=== PATIENT | male | born 1955 | race American Indian/Alaskan Native ===

== ENCOUNTER 2020-10-10 06:47 | Day surgery (SDC) | payer OTHER ==
[~2020-10-10 06:47] MED LIST: WATER FOR IRRIG STERILE 1,500 ML BOTTLE IR ONE; WATER FOR IRRIG STERILE 2000 ML IR ONE
[2020-10-10] MEDS ORDERED: HYDROmorphone 1 MG/1 ML INJ IV PRN (08:18)
[2020-10-10] MEDS ORDERED: PANTOPRAZOLE 40 MG TAB PO NR (08:18)
--- NOTE | 2020-10-10 08:19 | Anesthesia Day of Surgery ---
Anesthesia Day of Surgery - Day of Surgery Patient Examined: Yes Patient H&P Reviewed: Yes Patient is NPO: Yes
--- NOTE | 2020-10-10 08:20 | Anesthesia Consultation ---
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
[2020-10-10] MEDS ORDERED: LACTATED RINGERS 1,000 ML IV SCH (08:30)
[2020-10-10] MEDS ORDERED: ONDANSETRON 4 MG/2 ML INJ IV PRN (08:30)
[2020-10-10] MEDS ORDERED: MIDAZOLAM 2 MG/2 ML INJ IV NR (09:00)
[2020-10-10] MEDS ORDERED: ceFAZolin/STERILE WATER 2 GM/20 ML SYRINGE IV NR (09:33)
[2020-10-10] MEDS ORDERED: HYDROmorphone 1 MG/1 ML INJ ONE (09:49)
[2020-10-10] MEDS ORDERED: propofoL 200 MG/20 ML VIAL IV ONE (09:49)
[2020-10-10] MEDS ORDERED: LIDOCAINE MPF (2%) 20 MG/1 ML VIAL 5 ML ONE (09:49)
[2020-10-10] MEDS ORDERED: WATER FOR IRRIG STERILE 2000 ML IR ONE ×2 (10:28)
[2020-10-10] MEDS ORDERED: WATER FOR IRRIG STERILE 1,500 ML BOTTLE IR ONE (10:28)
[2020-10-10] MEDS ORDERED: KETOROLAC 30 MG/1 ML INJ ONE (10:54)
[2020-10-10] MEDS ORDERED: ONDANSETRON 4 MG/2 ML INJ ONE ×2 (10:54→13:32)
--- NOTE | 2020-10-10 11:01 | Short Stay Summary ---
Short Stay Documentation Date of service: 10/10/20 - History H&P: obtained from office - Allergies and Medications Current Medications: Allergies No Known Allergies Allergy (Unverified 10/07/20 09:23) Home Medications Medication Instructions Recorded Confirmed Last Taken Type Pantoprazole [Protonix] 40 mg PO QDAY 10/07/20 10/07/20 10/09/20 History Zolpidem Tartrate 10 mg PO HS 10/07/20 10/07/20 10/09/20 History Active Medications Cefazolin Sodium (Cefazolin/Sterile Water 2 Gm/20 Ml Syringe) 2 gm IV PREOP NR Stop: 10/10/20 23:59 Hydromorphone HCl (Hydromorphone 1 Mg/1 Ml Inj) 0.5 mg IV Q10MIN PRN PRN Reason: Pain , Severe (7-10) Stop: 10/10/20 23:00 Hydromorphone HCl (Hydromorphone 1 Mg/1 Ml Inj) 0.25 mg IV Q10MIN PRN PRN Reason: Pain, Moderate (4-6) Stop: 10/10/20 23:00 Lactated Ringer's (Lactated Ringers) 1,000 mls @ 125 mls/hr IV DIRECT KATINA Last Admin: 10/10/20 09:10 Dose: 125 mls/hr Documented by: Midazolam HCl (Midazolam 2 Mg/2 Ml Inj) 2 mg IV PREOP NR Stop: 10/10/20 23:59 Last Admin: 10/10/20 09:11 Dose: 2 mg Documented by: Ondansetron HCl (Ondansetron 4 Mg/2 Ml Inj) 4 mg IV ONCE PRN PRN Reason: Nausea And Vomiting Stop: 10/10/20 13:00 - Brief post op/procedure progress note Date of procedure: 10/10/20 Pre-op diagnosis: bladder tumor-rt Post-op diagnosis: other (urethral stricture) - Hospital course Hospital course: ruel lo,post op info on chart - Disposition Condition at discharge: Stable Disposition: DC-01 TO HOME OR SELFCARE Short Stay Discharge Plan Follow up with: [facility] [Primary Care Provider] - 7 Days
[2020-10-10] MEDS: HYDROmorphone 1 MG/1 ML INJ IV PRN ×4 (11:20→11:57)
[2020-10-10 12:43] VITALS: BP 154/90
--- NOTE | 2020-10-10 13:06 | Operative Report ---
DATE OF SURGERY: 10/10/2020 PREOPERATIVE DIAGNOSIS: Right-sided bladder tumor, 2 cm. POSTOPERATIVE DIAGNOSIS: Right-sided bladder tumor, 2 cm. SECONDARY DIAGNOSIS: Urethral stricture. PROCEDURE PERFORMED: Cystoscopy, bilateral retrograde pyelograms, direct vision internal urethrotomy, transurethral resection of bladder tumor, 2 cm. SURGEON: Luis M Patricio MD. ANESTHESIA: General. ESTIMATED BLOOD LOSS: Minimal. FLUIDS: Crystalloid. COMPLICATIONS: No complications. INDICATIONS: This patient is a 65-year-old gentleman seen for hematuria. He had a CT suggested a 2 cm mass. Cystoscopy confirmed bladder tumor. Risks, benefits, and complications were explained. The patient agreed to proceed with surgical intervention. DESCRIPTION OF PROCEDURE: The patient was taken to the operative suite, placed in the supine position. After adequate general anesthesia, placed in the dorsal lithotomy position, prepped and draped in a sterile fashion. Pancystourethroscopy was performed with 22-[place] Storz cystoscope. Obvious bulbar stricture. A 0.035 Glidewire was placed. Cold knife was used to make a cut at the 12 o'clock position. The scope was able to be advanced. Prostate was nonobstructing the bladder. No stones were noted. Both ureteral orifices in normal position. Calcified tumor, right lateral wall could be appreciated. Bilateral retrograde pyelograms were obtained with an 8-[place] Bernardo catheter and 8 mL of contrast. No filling defects or obstruction. Next, using with a 24-[place] resectoscope and loop with cutting and coag on 160 and 60, transurethral resection of the bladder tumor was performed. As I got down to the base, started to have an obturator reflex. I dropped the cut down to 140. I was able to resect a little more and developed reflex again and therefore, I cauterized the rest of the base. Chips were evacuated out. Cystogram suggested mild extraperitoneal. I left a 20-[place] catheter draining. Rectal exam was benign. He was extubated and taken to recovery room and go home on Bactrim and Delmita. TID: [id number] RECEIPT: [id number] NIRAJ/CARLOS
--- NOTE | 2020-10-10 14:50 | Fluoroscopy Report ---
FLUOROSCOPY RETROGRADE UROGRAPHY FLUOROSCOPY CYSTOGRAM STATIC-OR HISTORY: Bladder tumor, urethral stricture FINDINGS: Fluoroscopy was provided by radiology during retrograde urography by the urologist. There i s normal filling of both renal collecting systems. No filling defect or abnormal dilatation is identi fied. There is good drainage of both collecting systems on the final images. A single image of the bladder is presented containing contrast agent. Bladder fulguration was perform ed per the operative notes. IMPRESSION: Unremarkable bilateral retrograde pyelograms. Bladder fulguration was performed. Fluoroscopy time: 0.8 minutes Fluoroscopic images: 6 Signer Name: Jacob Peralta Jr, MD Signed: 10/10/2020 2:45 PM Workstation Name: [id number]
--- NOTE | 2020-10-10 19:49 | Post Anesthesia Evaluation ---
- Post Anesthesia Evaluation Patient Participated: Yes Airway Patent: Yes Stable Respiratory Function: Yes Nausea/Vomiting: No Temp > 96.8F: Yes Pain Manageable: Yes Adequeate Hydration: Yes Anesthesia Complications: No Block Receding Appropriately: Not Applicable Patient on Ventilator: No
== END 2020-10-10 14:05 | disposition home or self-care (01) ==
LOC: OR 06:47
PROVIDERS: ATTEND Urology
DX: C67.2 Malignant neoplasm of lateral wall of bladder (principal); N35.812 Other bulbous urethral stricture, male; G43.909 Migraine, unspecified, not intractable, without status migrainosus; K21.9 Gastro-esophageal reflux disease without esophagitis; M19.90 Unspecified osteoarthritis, unspecified site; D64.9 Anemia, unspecified; Z98.890 Other specified postprocedural states; Z90.49 Acquired absence of other specified parts of digestive tract; Z87.891 Personal history of nicotine dependence; Z79.899 Other long term (current) drug therapy; Z87.442 Personal history of urinary calculi
CPT/HCPCS: 52234; 52276; 74420; 74430; 88307; A4217; C1758; J0690; J1170; J1885; J2250; J2405; J2704; J7120; Q9967

== ENCOUNTER 2021-09-04 06:43 | Day surgery (SDC) | payer OTHER ==
[~2021-09-04 06:43] MED LIST changes: +LACTATED RINGERS 1,000 ML IV SCH; +MIDAZOLAM 2 MG/2 ML INJ IV NR; -WATER FOR IRRIG STERILE 1,500 ML BOTTLE IR ONE; -WATER FOR IRRIG STERILE 2000 ML IR ONE
--- NOTE | 2021-09-04 07:35 | Anesthesia Consultation ---
Anesthesia Consult and Med Hx Date of service: 09/04/21 - Airway Anesthetic Teeth Evaluation: Good (multiple missing teeth, denies loose teeth), Dentures (upper) ROM Head & Neck: Adequate Mental/Hyoid Distance: Adequate Mallampati Class: Class II Intubation Access Assessment: Probably Good - Pre-Operative Health Status ASA Pre-Surgery Classification: ASA3 Proposed Anesthetic Plan: General - Pulmonary Hx Smoking: Yes (quit 30yrs ago) Hx Respiratory Symptoms: No - Cardiovascular System Hx Hypertension: No Hx Heart Attack/AMI: No - Central Nervous System CVA: No Hx Back Pain: Yes - Gastrointestinal Hx Gastroesophageal Reflux Disease: Yes - Endocrine Hx Renal Disease: No Hx Liver Disease: No Hx Insulin Dependent Diabetes: No Hx Non-Insulin Dependent Diabetes: No Hx Thyroid Disease: No - Other Systems Hx Cancer: Yes (bladder ca) - Additional Comments Anesthesia Medical History Comments: Hx post-discharge N/V.
[2021-09-04] MEDS ORDERED: ONDANSETRON 4 MG/2 ML INJ IV PRN (07:36)
[2021-09-04] MEDS ORDERED: HYDROcodone/ACETAMINOPHEN 5-325 MG TAB PO PRN (07:36)
--- NOTE | 2021-09-04 07:36 | Anesthesia Day of Surgery ---
Anesthesia Day of Surgery - Day of Surgery Patient Examined: Yes Patient H&P Reviewed: Yes Patient is NPO: Yes
[2021-09-04] MEDS ORDERED: ceFAZolin/STERILE WATER 2 GM/20 ML SYRINGE IV NR (08:00)
[2021-09-04] MEDS ORDERED: SCOPOLAMINE TRANSDERMAL PATCH 72 HR TD NR (08:00)
[2021-09-04] MEDS ORDERED: fentaNYL 100 MCG/2 ML INJ ONE (09:09)
[2021-09-04] MEDS ORDERED: LIDOCAINE MPF (2%) 20 MG/1 ML VIAL 5 ML ONE (09:09)
[2021-09-04] MEDS ORDERED: ONDANSETRON 4 MG/2 ML INJ ONE (09:09)
[2021-09-04] MEDS ORDERED: propofoL 200 MG/20 ML VIAL IV ONE (09:09)
[2021-09-04] MEDS ORDERED: WATER FOR IRRIG STERILE 2000 ML IR ONE (09:17)
--- NOTE | 2021-09-04 10:09 | Short Stay Summary ---
Short Stay Documentation Date of service: 09/04/21 - History H&P: obtained from office - Allergies and Medications Current Medications: Allergies No Known Allergies Allergy (Verified 08/31/21 11:45) Home Medications Medication Instructions Recorded Confirmed Last Taken Type Pantoprazole [Protonix] 40 mg PO QDAY 10/07/20 08/31/21 10/09/20 History Zolpidem Tartrate 10 mg PO HS 10/07/20 08/31/21 10/09/20 History HYDROcodone/APAP 5-325 [[place] 1 each PO Q6HR PRN 08/31/21 08/31/21 Unknown History 5/325] Active Medications Hydrocodone Bitart/Acetaminophen (Hydrocodone/Acetaminophen 5-325 Mg Tab) 2 each PO ONCE PRN PRN Reason: Pain, Moderate (4-6) Stop: 09/04/21 20:00 Cefazolin Sodium (Cefazolin/Sterile Water 2 Gm/20 Ml Syringe) 2 gm IV PREOP NR Stop: 09/04/21 20:00 Fentanyl (Fentanyl 100 Mcg/2 Ml Inj) 50 mcg IV Q5MIN PRN PRN Reason: Pain , Severe (7-10) Stop: 09/04/21 20:00 Lactated Ringer's (Lactated Ringers) 1,000 mls @ 100 mls/hr IV DIRECT KATINA Stop: 09/04/21 23:59 Last Admin: 09/04/21 08:54 Dose: 100 mls/hr Midazolam HCl (Midazolam 2 Mg/2 Ml Inj) 2 mg IV PREOP NR Stop: 09/04/21 23:59 Last Admin: 09/04/21 08:54 Dose: 2 mg Ondansetron HCl (Ondansetron 4 Mg/2 Ml Inj) 4 mg IV ONCE PRN PRN Reason: Nausea And Vomiting Stop: 09/04/21 12:00 Scopolamine (Scopolamine Transdermal Patch 72 Hr) 1 each TD PREOP NR Stop: 09/04/21 20:00 Last Admin: 09/04/21 08:54 Dose: 1 each - Brief post op/procedure progress note Date of procedure: 09/04/21 Pre-op diagnosis: hematuria Post-op diagnosis: same (recurrent bladder tumor) Procedure: cysto, rpg, TURBT---2CM Anesthesia: GETA Surgeon: RENNY K FREDY Pathology: list Specimen disposition: to lab Condition: stable - Hospital course Hospital course: ULTRAM & MACROBID - Disposition Condition at discharge: Stable Disposition: 01 HOME / SELF CARE / HOMELESS Short Stay Discharge Plan Follow up with: [facility] [Primary Care Provider] - 7 Days
[2021-09-04] MEDS ORDERED: MANNITOL/SORBITOL SOLUTION 3,000 ML IRRIG.SOLN IR ONE (10:10)
[2021-09-04] MEDS: fentaNYL 100 MCG/2 ML INJ IV PRN ×2 (11:55→12:50)
[2021-09-04] MEDS ORDERED: WATER FOR IRRIG STERILE 1,000 ML BOTTLE ONE ×2 (11:56→12:57)
[2021-09-04 13:42] LABS: Hematocrit 44.9 % (35.5-45.6); Hemoglobin 14.7 gm/dl (11.8-15.2)
--- NOTE | 2021-09-04 14:44 | Post Anesthesia Evaluation ---
- Post Anesthesia Evaluation Patient Participated: Yes Airway Patent: Yes Stable Respiratory Function: Yes Nausea/Vomiting: No Temp > 96.8F: Yes Pain Manageable: Yes Adequeate Hydration: Yes Anesthesia Complications: No
[2021-09-04 16:46] VITALS: BP 148/94
--- NOTE | 2021-09-04 22:37 | Operative Report ---
DATE OF SURGERY: 09/04/2021 PREOPERATIVE DIAGNOSIS: Gross hematuria. POSTOPERATIVE DIAGNOSES: Gross hematuria. Recurrent bladder tumor. PROCEDURES: Cystoscopy, bilateral retrograde pyelograms, transurethral resection of moderate sized bladder tumor, 2 cm. SURGEON: Luis M Patricio MD ANESTHESIA: General. ESTIMATED BLOOD LOSS: Minimal. FLUIDS: Crystalloid. COMPLICATIONS: No complications. INDICATIONS: This patient is a 66-year-old gentleman known to our service with a history of bladder tumor in 10/2020. He underwent resection and mitomycin C afterwards. He no-showed for his followup cystoscopy due to insurance coverage issues. He presents now for reevaluation. He had an episode of gross hematuria. DESCRIPTION OF PROCEDURE: The patient was taken to the operative suite, placed in a supine position. After adequate general anesthesia, he was prepped and draped in a sterile fashion. He was placed in the dorsal lithotomy position. Pancystourethroscopy was performed with a 22-[place] Storz cystoscope, no urethral abnormalities. Prostate minimally obstructing. Could see another bladder neck tumor ____ from the 12 o'clock to 8 o'clock position, also noted to have in the bladder some small carpet-like tumor in the trigone. No other tumors could be appreciated. Posterior diverticulum. No tumor could be appreciated in there. Bilateral retrograde pyelograms were obtained with an 8-[place] catheter and 8 mL of contrast. No filling defects or obstruction. He did have some J hooking. Next, using a 24-[place] resectoscope and loop with cutting and coag on 120 and 60, transurethral resection of the bladder tumor was performed. Appeared to have gotten all the tumor. However, he had some obturator reflex and therefore the base of the tumor was primarily cauterized to remove it. Any high current cause a significant obturator reflex. Cauterization of the tumor in the trigone was also performed. Chips were evacuated out with the [employer] evacuator. The patient tolerated the procedure well and was extubated and taken to recovery room. Rectal exam was benign. He will go home on UpTap and Calm. TID: [id number] RECEIPT: [id number] [facility]/FRANK/LARRY
== END 2021-09-04 15:45 | disposition home or self-care (01) ==
LOC: OR 06:43
PROVIDERS: ATTEND Urology
DX: R31.0 Gross hematuria (principal); C67.0 Malignant neoplasm of trigone of bladder; N13.9 Obstructive and reflux uropathy, unspecified; G43.909 Migraine, unspecified, not intractable, without status migrainosus; K21.9 Gastro-esophageal reflux disease without esophagitis; M19.90 Unspecified osteoarthritis, unspecified site; D64.9 Anemia, unspecified; Z20.822 Contact with and (suspected) exposure to COVID-19; Z87.891 Personal history of nicotine dependence; Z79.899 Other long term (current) drug therapy; Z98.890 Other specified postprocedural states; Z90.49 Acquired absence of other specified parts of digestive tract; Z87.442 Personal history of urinary calculi
CPT/HCPCS: 36415; 52235; 74420; 85014; 85018; 88305; C1758; J0690; J2250; J2405; J2704; J3010; J3490; J7120; U0003; 88307